=== PATIENT | female | born 1945 | race Caucasian/White ===

== ENCOUNTER 2023-01-17 05:13 | Observation (INO) ==
--- NOTE | 2022-12-18 10:54 | PAT Medication Instructions ---
Medication Instructions Date of Service December 18, 2022 Home Medications Bifidobacterium infantis 4 mg capsule (Align) 4 mg PO QDL cholecalciferol (vitamin D3) 50 mcg (2,000 unit) tablet (Vitamin D3) 50 mcg PO DAILY coQ10 (ubiquinol) 200 mg capsule 400 mg PO DAILY cyanocobalamin (vitamin B-12) 1,000 mcg tablet (Vitamin B-12) 1,000 mcg PO DAILY fluoxetine 20 mg capsule (Prozac) 20 mg PO QDL magnesium 250 mg tablet 250 mg PO 2XWK mesalamine 800 mg tablet,delayed release 1,600 mg PO BID pantoprazole 40 mg tablet,delayed release (Protonix) 40 mg PO BID valacyclovir 500 mg tablet (Valtrex) 500 mg PO QAM vitamin B complex 1 tab PO DAILY Continue as directed fluoxetine 20 mg capsule (Prozac) 20 mg PO QDL ASK your prescriber and surgeon mesalamine 800 mg tablet,delayed release 1,600 mg PO BID STOP taking 2 weeks before surgery coQ10 (ubiquinol) 200 mg capsule 400 mg PO DAILY DO NOT take the morning of surgery Bifidobacterium infantis 4 mg capsule (Align) 4 mg PO QDL cholecalciferol (vitamin D3) 50 mcg (2,000 unit) tablet (Vitamin D3) 50 mcg PO DAILY cyanocobalamin (vitamin B-12) 1,000 mcg tablet (Vitamin B-12) 1,000 mcg PO DAILY magnesium 250 mg tablet 250 mg PO 2XWK vitamin B complex 1 tab PO DAILY Take morning of surgery With a small sip of water, OTHERWISE NOTHING TO EAT OR DRINK AFTER MIDNIGHT: pantoprazole 40 mg tablet,delayed release (Protonix) 40 mg PO BID valacyclovir 500 mg tablet (Valtrex) 500 mg PO QAM Take evening before surgery pantoprazole 40 mg tablet,delayed release (Protonix) 40 mg PO BID Insulin Dependent Diabetic Patients * Test your blood sugar the morning of surgery * If Blood Sugar is GREATER THAN 150, take HALF of your regular dose of: * If Blood Sugar is LESS THAN 150, DO NOT TAKE ANY: Other Notes If you have any questions please call us at [phone] or [phone] or [phone] or [phone]
--- NOTE | 2022-12-25 13:44 | Anesthesiology Consultation ---
Date of Service December 25, 2022 Assessment & Plan (1) Encounter for pre-operative examination: Chart Review Chart Review: Acceptable Risk for Surgery (pending PCP clearance 12/31/22) and Patient seen in Pre Admission Testing -Awaiting PCP clearance 12/31/22 - Would not recommend patient as Outpatient Joint due to comorbities Per PAT appt on 12/25/22, patient denies any recent travel or large group activities. Pt is vaccinated for Covid. Will leave to surgeon's discretion if preop Covid testing needed. Educated on importance of using Covid precautions one week prior to surgery Cardiology Clearance letter 12/18/2022 = low cardiac risk for upcoming procedure. Patient last seen by cardiology 11/12/2022 = seen for EP evaluation. No new or worsening cardiac symptoms. History of paroxysmal atrial tachycardia, inflammatory bowel disease, CHAVEZ. Underwent baseline and stress echo June 2022. Showed preserved LVEF and no hemodynamically significant valvular or structural abnormalities. Stress test negative for ischemia. She is doing well from an EP perspective. EKG today is essentially normal. Baseline and stress echocardiogram were reviewed. Palpitations have been nonprogressive. BP at goal. Teaching & Discussion Pre-Anesthesia Teaching/Discussion Notes: Instructed NPO after midnight before surgery,except medications with 15 cc of water. Medication instructions provided according to the PAT guidelines. History Surgery Operation Date: 01/17/23 09:10 Proposed Procedures p Left Total Hip Arthroplasty - Matt Martinez MD Height/Weight Height: 5 ft 3 in Weight: 68.3 kg Allergies Allergy/AdvReac Type Severity Reaction Status Date / Time eggplant Allergy Severe mouth Verified 12/17/22 09:05 swelling shellfish derived Allergy Severe Anaphylaxis Verified 12/17/22 09:05 clarithromycin [From Biaxin] Allergy Intermediate hives and Verified 12/17/22 09:05 red all over levofloxacin [From Levaquin] Allergy Intermediate "pains in Verified 12/17/22 09:05 my calves" codeine Allergy Mild nausea/vomi Verified 12/17/22 09:05 ting Fish Containing Products Allergy Mild Rash Verified 12/17/22 09:05 Medications Home Medications Medication Instructions Recorded Confirmed Last Taken Bifidobacterium infantis 4 mg 4 mg PO QDL 12/17/22 12/17/22 Unknown capsule (Align) cholecalciferol (vitamin D3) 50 50 mcg PO DAILY 12/17/22 12/17/22 Unknown mcg (2,000 unit) tablet (Vitamin D3) coQ10 (ubiquinol) 200 mg capsule 400 mg PO DAILY 12/17/22 12/17/22 Unknown cyanocobalamin (vitamin B-12) 1,000 mcg PO DAILY 12/17/22 12/17/22 Unknown 1,000 mcg tablet (Vitamin B-12) fluoxetine 20 mg capsule (Prozac) 20 mg PO QDL 12/17/22 12/17/22 Unknown magnesium 250 mg tablet 250 mg PO 2XWK 12/17/22 12/17/22 Unknown mesalamine 800 mg tablet,delayed 1,600 mg PO BID 12/17/22 12/17/22 Unknown release pantoprazole 40 mg tablet,delayed 40 mg PO BID 12/17/22 12/17/22 Unknown release (Protonix) valacyclovir 500 mg tablet 500 mg PO QAM 12/17/22 12/17/22 Unknown (Valtrex) vitamin B complex 1 tab PO DAILY 12/17/22 12/17/22 Unknown Past Medical History Medical History Anxiety on prozac Atrial tachycardia - Paroxysmal, per pt has never gone above 110--follows Dr. 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- closed on own); later had rheumatic fever/scarlet fever at 5-6 years of age - followed with heart clinic during childhood - no murmur ntoed at 12/25/22 PAT appt PVC's (premature ventricular contractions) Raynauds disease Recurrent cold sores On prophylactic Valtrex Sleep apnea noncompliant with cpap Exercise / Class Metabolic Activity II 4-5 Yardwork/Stairs/Walk up hill (one flight stairs - no chest pain or SOB ) Past Family History Family History Other No family history of adverse response to anesthesia Past Surgical History Surgical History History of colonoscopy History of dilatation and curettage History of esophagogastroduodenoscopy (EGD) History of tonsillectomy History of wisdom tooth extraction Past Anesthesia History No Hx of Anesthesia Complications and No Family Hx of Anesthesia Complications History of PONV No Hx of PONV and No Hx of Motion Sickness Social History Smoking Status: Never smoker Do You Dip or Chew Tobacco: No Hx Alcohol Use: Yes alcohol intake frequency: holidays/special occasions only Hx Substance Use: No substance use type: does not use Review of Systems - Occ palpitations/skipped beat- stable x years- follows with cardio Patient denies chest pain, shortness of breath, dyspnea on exertion, cough, wheezing, palpitations. No hx of seizures, stroke, PA. No hx of blood clots or blood transfusions Physical Exam Vital Signs VITALS BP 163/85 P 72 TEMP 98.3 SP02 98% RESP 16 Constitutional no acute distress ENMT Mouth: no TMJ clicking Thyromental Distance: > or= 3.5 Finger Breadths (3.5) Mallampati Class: I Permanent bridge top right side Neck neck extension not limited Respiratory normal respiratory effort; no respiratory distress Auscultation: lungs clear to auscultation bilaterally; no wheezes Cardiovascular Rate/Rhythm: regular rate and regular rhythm Heart Sounds: no murmur Vessels: no carotid bruit Musculoskeletal Spine: no pain with cervical ROM Extremities: extremities normal to inspection Psychiatric Orientation: alert Lab Results Anesthesia Preop Results Results Anesthesia Widget: WBC 4.41 K/ul (4.8-10.8) L 12/25/22 Hgb 12.8 g/dl (12.0-16.0) 12/25/22 Hct 37.2 % (37.0-47.0) 12/25/22 Plt 224 K/uL (130-400) 12/25/22 Na 137 mmol/L (136-145) 12/25/22 K 4.4 mmol/L (3.5-5.1) 12/25/22 Cl 103 mmol/L (98-107) 12/25/22 CO2 30 mmol/L (21-32) 12/25/22 BUN 16 mg/dl (6-23) 12/25/22 Creat 0.62 mg/dl (0.6-1.2) 12/25/22 Glucose Level 80 mg/dl (70-99(Fasting)) 12/25/22 PT 10.4 Seconds (9.0-12.0) 12/25/22 PTT 26.7 Seconds (21.0-31.0) 12/25/22 INR 0.9 (0.9-1.1) 12/25/22 Urine Color Yellow 12/25/22 Urine Appearance Clear (Clear) 12/25/22 Urine pH 5.0 (4.5-7.5) 12/25/22 Urine Specific [place] 1.006 (1.000-1.030) 12/25/22 Urine Protein Negative (Negative) 12/25/22 Urine Glucose (UA) Negative (Negative) 12/25/22 Urine Ketones Negative (Negative) 12/25/22 Urine Blood Negative (Negative) 12/25/22 Urine Nitrite Negative (Negative) 12/25/22 Urine Bilirubin Negative (Negative) 12/25/22 Urine Urobilinogen Negative (Negative) 12/25/22 Urine Leukocyte Esterase Negative (Negative) 12/25/22 Blood Type O Positive 12/25/22 Antibody Screen NEGATIVE 12/25/22 Testing Electrocardiogram Date: 12/25/22 Findings: + NSR @ (60bpm ) Normal EKG per cardio Echocardiogram Date: 05/15/22 EF: 55-60% LV Function: normal Other Findings: no LVH or no diastolic dysfunction Valvular Disease: + MR (mild) Trace to mild TR Normal pulmonary pressures Stress Test Date: 06/12/22 Type: exercise (ECHO) Resting EF: 50-55% Stress EKG is negative for myocardial ischemia at 103% MPHR. Stress echo was negative for new wall motion abnormalities. 7.0 METS achieved. COVID-19 Risk Screen Screening Information COVID-19 Screen Date: 12/25/22 Exposure 21 Days Family/Household +COVID Last 21 Days: No Exposure 10 Days Any COVID Exposure Last 10 Days: No Symptoms Last 10 Days Experienced COVID Sx Last 10 Days: No + COVID 0-90 Days COVID + in Last 0-90 Days: No Risk Plan COVID Risk Plan: No Risk Identified Patient Education COVID Preop Screening Education Complete: Yes
--- NOTE | 2022-12-28 10:55 | History & Physical Report ---
Date of Service December 28, 2022 Assessment & Plan (1) Osteoarthritis of left hip: Plan: PRE-OP Diagnosis: Left hip osteoarthritis Planned Procedure: Left total hip arthroplasty Plan: Patient is scheduled to undergo this procedure at the [facility] with a 23-hour observation admission with Dr. Martinez on December. Risks and complications of the procedure such as: Infection, bleeding, pain, scarring, nerve blood vessel damage, weakness, wound problems, stiffness, incomplete relief of symptoms, hardware failure, hardware loosening, wear, fracture, tendon or ligament injury, dislocation, leg length inequality, blood clots, Embolism, heart attack, stroke and were explained to the patient at her visit today. Informed consent to perform the procedure was obtained. Patient also understands risks of proceeding with surgical intervention during the COVID-19 pandemic. Currently she is asymptomatic and has not been in contact with anyone positive for the virus recently. Patient has an appointment to meet with anesthesia later this afternoon and while there will obtain CBC with differential, complete metabolic panel, PT/INR, blood type and screen, urinalysis, urine culture and sensitivity, and a nasal culture for MRSA. Her EKG is up-to-date. 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 Rico. I spoke with her support group manager Dr. Suarez and advised him that we will prescribe the patient Celebrex due to her Crohn's disease and will have her on Xarelto for DVT prophylaxis. Patient states she is scheduled to see her primary care provider Dr. Emanuel on December 31 for her preoperative.. Patient states that she plans on doing in-home physical therapy for the first 1 to 2 weeks postoperatively. Patient states that she will most likely elect to do outpatient physical therapy at [facility] near her home. Patient will need a walker, raised toilet seat, shower chair and a hip kit. During today's visit we reviewed the total hip packet as well as precautions. We discussed discharge planning from the hospital. I provided paperwork to obtain a handicap placard for their vehicle. We discussed lectures offered by [facility] in regards to joint replacement surgery via Zoom. I advised the patient that upon discharge from hospital we will prescribe a narcotic pain medication and anti-inflammatory. Patient will also be on an Xarelto daily for blood clot prevention. Patient will be scheduled for 2-week postoperative follow-up visit with myself on January 25 at 1:30 PM. At that visit we will Provide the patient with an order for outpatient physical therapy and rehab protocol. Patient verbalizes understanding of all information provided during today's visit. She thanks for the care that she received. If she has questions or concerns that should arise prior to her surgery, she will contact clinic. This chart was completed utilizing [employer] voice recognition software. Grammatical errors, random word insertions, pronoun errors, and in complete sentences are an occasional consequence of the system. Any questions or concerns about the content, text, or information contained within the body of this dictation should be addressed directly to the physician for clarification. History of Present Illness Chief Complaint: Chief Complaint: Left hip pain Primary Care Provider: NO PCP History of Present Illness (including history relevant to procedure): This 77-year-old female presents to the clinic today for her preoperative history and physical. Patient states that she developed persistent left hip pain approximately 6 months ago. She feels the pain is affecting her gait and caused her to fall a few weeks ago. Patient localizes most of her pain to the posterior aspect of her hip but states that it does radiate into the groin with certain movements. Patient states the pain is affecting her ability to do housework, walk for long distances or to do any type of yard work. She states that at times she does have difficulty putting her pants on. She is electing to proceed with surgical intervention for her hip arthritis. Review Of Systems: A 12 point review of systems is performed and is unremarkable except for those things stated in the HPI and past medical history. Past Medical History: Problems: Arthritis of left hip Neuropathy History of heart murmur as a child Heart palpitations Sleep apnea Anxiety Rheumatoid arthritis Neck and lower back pain GERD Hiatal hernia Procedure History Procedure Procedure Date Comments Tonsillectomy/adenoidectomy Colonoscopy Endoscopy Allergies and Sensitivities: Biaxin(unknown) levoFLOXacin(Diarrhea) levoFLOXacin(Vomiting) eggplant(Mouth swelling) codeine(Rash, Hives) fish(Wheal) Current Home Meds: (Last Updated 12/25 11:01) FLUoxetine (PROzac 20 mg oral capsule) 20 mg PO Daily acetaminophen (Tylenol Arthritis Extended Release) cholecalciferol (Vitamin D3) PO cyanocobalamin (Vitamin B12) 1,000 mcg folic acid (folic acid 1 mg oral tablet) take 1 tablet by mouth once daily mesalamine (mesalamine 800 mg oral delayed release tablet) take 2 tablets by mouth twice a day multivitamin (Vitamin B Complex) pantoprazole (pantoprazole 40 mg oral delayed release tablet) take 1 tablet by mouth twice a day ubiquinone (CoQ10) unknown medication (probiotic) unknown medication (magnesium) 250mg twice a week valACYclovir (valACYclovir 500 mg oral tablet) take 1 tablet by mouth every 8 hours Allergies Allergy/AdvReac Type Severity Reaction Status Date / Time eggplant Allergy Severe mouth Verified 12/17/22 09:05 swelling shellfish derived Allergy Severe Anaphylaxis Verified 12/17/22 09:05 clarithromycin [From Biaxin] Allergy Intermediate hives and Verified 12/17/22 09:05 red all over levofloxacin [From Levaquin] Allergy Intermediate "pains in Verified 12/17/22 09:05 my calves" codeine Allergy Mild nausea/vomi Verified 12/17/22 09:05 ting Fish Containing Products Allergy Mild Rash Verified 12/17/22 09:05 Home Medications Medication Instructions Recorded Confirmed Type Bifidobacterium infantis 4 mg 4 mg PO QDL 12/17/22 12/17/22 History capsule (Align) cholecalciferol (vitamin D3) 50 50 mcg PO DAILY 12/17/22 12/17/22 History mcg (2,000 unit) tablet (Vitamin D3) coQ10 (ubiquinol) 200 mg capsule 400 mg PO DAILY 12/17/22 12/17/22 History cyanocobalamin (vitamin B-12) 1,000 mcg PO DAILY 12/17/22 12/17/22 History 1,000 mcg tablet (Vitamin B-12) fluoxetine 20 mg capsule (Prozac) 20 mg PO QDL 12/17/22 12/17/22 History magnesium 250 mg tablet 250 mg PO 2XWK 12/17/22 12/17/22 History mesalamine 800 mg tablet,delayed 1,600 mg PO BID 12/17/22 12/17/22 History release pantoprazole 40 mg tablet,delayed 40 mg PO BID 12/17/22 12/17/22 History release (Protonix) valacyclovir 500 mg tablet 500 mg PO QAM 12/17/22 12/17/22 History (Valtrex) vitamin B complex 1 tab PO DAILY 12/17/22 12/17/22 History Past Med/Surg History Medical History Anxiety on prozac Atrial tachycardia - Paroxysmal, per pt has never gone above 110--follows Dr. 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- closed on own); later had rheumatic fever/scarlet fever at 5-6 years of age - followed with heart clinic during childhood - no murmur ntoed at 12/25/22 PAT appt PVC's (premature ventricular contractions) Raynauds disease Recurrent cold sores On prophylactic Valtrex Sleep apnea noncompliant with cpap Surgical History History of colonoscopy History of dilatation and curettage History of esophagogastroduodenoscopy (EGD) History of tonsillectomy History of wisdom tooth extraction Family History Other No family history of adverse response to anesthesia Social History Smoking Status: Never smoker Second Hand Exposure: No; Do You Dip or Chew Tobacco: No; Hx Alcohol Use: Yes Hx Substance Use: No Preferred Language: Swedish Communication Ability: Effective Public Message Service Supervisor Required: No Beliefs That Will Affect Care: None Current Living Situation: Spouse Feels Safe at Home: Yes Assistive Devices: CPAP and Glasses Physical Exam Physical Exam: Physical Exam: (relevant to the procedure, including heart and lung evaluation) General: Alert and oriented x3 with proper grooming and hygiene Eyes: Pupils are equal and reactive to light with accommodation. Extraocular movements are intact Throat: Posterior oropharynx is clear with absence of edema, erythema or exudate Cardiac: Regular rate and rhythm with no murmurs or gallops appreciated Lungs: Clear to auscultation throughout with no wheezing, rales or rhonchi Abdomen: Mildly obese, nondistended, nontender with NABS Extremities: Left hip: Range of motion is limited to 90 degrees of flexion 5 degrees of internal rotation and 45 degrees of external rotation. Logroll test is positive with referred pain to the groin area. Stinchfield test is also positive with referred pain to the same location. Patient experiences tenderness to palpation over the groin and posterior lateral aspect of the hip. She has some weakness with applied resistance during a straight leg raise test. Otherwise she is neurovascularly intact in the left lower extremity. Neuro: Cranial nerves II through XII are intact with no motor or sensory deficit Skin: Normal in appearance with no open skin areas or discharge Results & Data Diagnostic Findings Studies (relevant to the procedure): 2 views of the left hip and ap pelvis show evidence of severe central pattern arthritis of left hip and moderate arthr itis of the right hip. Anterior joint wear on cross-table lateral film.
[2023-01-17] MEDS ORDERED: ceFAZolin 2000MG 2,000 MG/15 ML SYR IV SCH (06:00)
[2023-01-17] MEDS ORDERED: Scopolamine 1 MG TDSY TD SCH (06:00)
[2023-01-17] MEDS ORDERED: dexAMETHasone 4 MG TAB PO SCH (06:00)
[2023-01-17] MEDS ORDERED: ACETAMINOPHEN 500 MG TAB PO SCH (06:00)
[2023-01-17] MEDS ORDERED: ROPIVACAINE 0.5% HCL/PF 150 MG, BUPIVACAINE 0.75% MPF 20 ML, EPINEPHrine 0.15 MG, Ketor... INFIL SCH (06:00)
[2023-01-17] MEDS ORDERED: FAMOTIDINE 20 MG TAB PO SCH (06:00)
[2023-01-17] MEDS ORDERED: TRANEXAMIC ACID 1,000 MG **IV Intra-op IV SCH (06:00)
[2023-01-17] MEDS ORDERED: LR 500ML BOLUS, THEN 15ML/HR IV SCH (06:00)
[2023-01-17] MEDS ORDERED: traMADol HCL 50 MG TABLET PO SCH (06:00)
[2023-01-17] MEDS ORDERED: CeleBREX 200 MG CAP PO SCH (06:00)
[2023-01-17] MEDS ORDERED: LR 60ML/HR IV SCH (06:00)
[2023-01-17] MEDS ORDERED: TRANEXAMIC ACID 1,000 MG **IV Pre-op IV SCH (06:00)
[2023-01-17] MEDS ORDERED: LIDOCAINE 2% 2 ML VIAL/AMP(20MG/ML) INFIL ONE (06:33)
[2023-01-17] MEDS ORDERED: MIDAZOLAM HCL 1 MG/ML 2ML VIAL ONE (06:33)
[2023-01-17] MEDS ORDERED: PROPOFOL IV EMULSION 10 MG/ML 20 ML VIAL IV ONE (06:33)
[2023-01-17] MEDS ORDERED: fentaNYL citrate PF 100 MCG/2 ML VIAL ONE (06:33)
[2023-01-17] MEDS ORDERED: ORTHO JOINT ANESTHETIC ONE (06:34)
[2023-01-17] MEDS ORDERED: DEXAMETHASONE SOD INJ 4 MG/ML VIAL ONE (06:36)
[2023-01-17] MEDS ORDERED: ONDANSETRON INJ 2 MG/ML 2 ML VIAL ONE (06:36)
[2023-01-17] MEDS ORDERED: BUPIVACAINE 0.5 % 5 MG/1 ML PF 10ML VIAL ONE (06:36)
--- NOTE | 2023-01-17 06:42 | History & Physical Bridge Note ---
Date of Service January 17, 2023 History & Physical Bridge Note I have examined the patient, reviewed the History & Physical and in the interval since the performance of the History & Physical I have noted the following changes of clinical significance: no changes noted
[2023-01-17] MEDS ORDERED: ATROPINE SULFATE 0.1 MG/ML 10ML SYR IV PRN (06:49)
[2023-01-17] MEDS ORDERED: ePHEDrine sulfate 50 MG/ML AMP IV PRN (06:49)
[2023-01-17] MEDS ORDERED: HYDROmorphone INJ 2 MG/ML SYR/VIAL IV PRN (06:49)
[2023-01-17] MEDS ORDERED: ONDANSETRON INJ 2 MG/ML 2 ML VIAL IV PRN ×2 (06:49→08:52)
[2023-01-17] MEDS ORDERED: fentaNYL citrate PF 100 MCG/2 ML VIAL IV PRN (06:49)
[2023-01-17] MEDS ORDERED: ROCURONIUM BROMIDE 10 MG/ML 5 ML VIAL IV ONE (07:21)
[2023-01-17] MEDS ORDERED: ePHEDrine sulfate 50 MG/ML AMP ONE (07:31)
[2023-01-17] MEDS ORDERED: SUGAMMADEX SODIUM 200 MG/2 ML VIAL IV ONE (08:17)
--- NOTE | 2023-01-17 08:50 | Operative Report ---
Post Operative Report Pre & Post Diagnosis Operation Date: 01/17/23 07:00 Pre-Op Diagnosis: Left Hip Osteoarthritis Post-Op Diagnosis: Left Hip Osteoarthritis I identified the patient and participated in the time-out.: Yes Procedure Operation Date: 01/17/23 07:00 Actual Procedures p Left Total Hip Arthroplasty(Left) - Matt Martinez MD Surgeon Matt Martinez MD [employer]r FINN Mcdaniels PA-C and LUCY Davidson. No resident or fellow available Estimated Blood Loss 100 Findings Consistent with Post-Op Diagnosis Specimens Left femoral head Anesthesia Type Spinal MAC Complications none Disposition Disposition: Recovery Room Indications 78-year-old female with left hip osteoarthritis refractory to conservative management. X-rays demonstrate [id number] disease. She has medical history significant for neuropathy and rheumatoid arthritis. I had a long discussion with her about the risk and benefits of surgery, alternatives to surgery, and expected outcomes. After reviewing all these she elected to proceed with surge ry. All questions were answered. Informed consent was signed. Description of Procedure Patient was identified in the preoperative holding area where the surgical site, left hip, was marked. A spinal anesthetic was placed, then the patient was brought back to the main operating room, placed in the operating table and moved into the lateral decubitus position. Axillary roll was placed. All bony prominences were padded. Perioperative antibiotics and tranexamic acid 1 gram IV were administered. Operative extremity was prepped and draped in the normal sterile fashion. Prior to incision a multidisciplinary timeout was called. All in the room were in agreement. We began by making an incision for a posterior approach to the hip. We dissec jany down through subcutaneous tissues to the level of the fascia. The fascia was incised in line with the incision. Charnley bow was placed. The upper 1 cm gluteal sling was released 1 cm off the posterior aspect of the femur to improve visualization. Fatty tissue was reflected posteriorly off the back of the greater trochanter to expose the piriformis and short external rotators of the hip. The quadratus femoris, piriformis and short external rotators were dissected off the posterior aspect of the hip. A box cut was made in the capsule. Inferior hip capsule was released off the femur. The femoral head was dislocated. The femoral neck cut was made at our preoperative template. The acetabulum was then exposed. The labrum was sharply excised. Contents of the cotyloid fossa were removed with electrocautery. We then began reaming at a size 8 mm less than our preoperative template. We reamed up by [address] the way up to a size 50 mm cup. This gave us good bleeding cancellus bone circumferentially. The acetabulum was then irrigated out and dried. The real Center Gription cup was then impacted down into position with 45 degrees of lateral opening and 25 degre es of anteversion. A single cancellous bone screw was placed up into the ilium. Excellent fixation was obtained. A trial liner for a 32 mm femoral head was then placed. Next we turned our attention to the femur. The lateral neck was removed with a box osteotome. Intramedullary guide was used followed by the lateralizing reamer. We then reamed up to a size 4 [place] stem. We then broached all the way up to a size 4. We began trialing with a standard offset neck and a +1 head. Hip was reduced. Leg lengths were symmetric. The hip was stable in extension and external rotation, and stable in the sleeper position. At 90 degrees of hip flexion the hip could be internally rotated 60 degrees before levering out of the cup. I was very happy with the stability exam. Therefore the hip was dislocated and the femoral trial was removed. The acetabulum was re-exposed, and the trial liner was removed. An Altrx polyethylene liner for a 32 mm femoral head was then impacted into the shell. The locking mechanism was checked to ensure that it had engaged which it had. The femur was re-exposed. The femoral canal was irrigated and dried. The real size 4 standard offset [place] femoral stem was opened up. This was impacted down into position. It sat at the same level as the femoral trial. Therefore the 32 mm ceramic femoral head with +1 mm offset was opened up and gently impacted down onto the trunnion. The hip was atraumatically reduced. Another 1 gram of IV tranexamic acid was started prior to closure. The wound was irrigated out with sterile Betadine solution. The periarticular injection cocktail was then placed. The short external rotators, piriformis, and posterior capsule were repaired through drill holes in the greater trochanter using #2 Vicryl. The fascia was run with a looped #1 PDS. The subcutaneous layer was closed with #1 PDS. The dermal layer was closed with 2-0 Vicryl. Zip line was used for the skin followed by a Silverlon dressing. A compressive dressing was then placed. The patient was then rolled supine. Leg lengths were rechecked and were symmetric. An abduction pillow was placed. Sedation was lifted and the patient was transferred to the recovery room in stable condition. Summary of implants: Depuy Center Gription Acetabular Shell Sector Cup, 50 mm outer diameter Center Cancellous bone screw, 6.5 x 40 mm Center Altrx Polyethylene Acetabular Liner, Neutral, with a 32 mm inner diameter DePuy [place] Femoral stem with Porocoat, 12/14 taper, size 4 standard 32 mm ceramic femoral head with +1 offset Postoperative course: Patient will be admitted to the hospital from the recovery room. Patient will be weightbearing as tolerated with posterior hip precautions. Aspirin for DVT prophylaxis I attest to the content of the Intraoperative Record and any orders documented therein. Any exceptions are noted below.
[2023-01-17] MEDS ORDERED: bisacodyL 10 MG SUPP PR PRN (08:52)
[2023-01-17] MEDS ORDERED: HYDROmorphone INJ 0.5 MG/0.5 ML SYR IV PRN (08:52)
[2023-01-17] MEDS ORDERED: diphenhydrAMINE 50 MG/ML VIAL IV PRN (08:52)
[2023-01-17] MEDS ORDERED: NALOXONE HCL 0.4 MG/1 ML VIAL/CARP IV PRN (08:52)
[2023-01-17] MEDS ORDERED: MAGNESIUM HYDROXIDE SUSP 30 ML UDC PO PRN (08:52)
[2023-01-17] MEDS ORDERED: METOCLOPRAMIDE HCL INJ 5 MG/ML 2 ML VIAL IV PRN (08:52)
[2023-01-17] MEDS ORDERED: ALUMINUM/MAGNESIUM SUSP 30 ML UDC PO PRN (08:52)
--- NOTE | 2023-01-17 08:52 | Operative Report ---
Post Operative Report Pre & Post Diagnosis Operation Date: 01/17/23 07:00 Pre-Op Diagnosis: Left Hip Osteoarthritis Post-Op Diagnosis: Left Hip Osteoarthritis I identified the patient and participated in the time-out.: Yes Procedure Operation Date: 01/17/23 07:00 Actual Procedures p Left Total Hip Arthroplasty(Left) - Matt Martinez MD Surgeon Matt Martinez MD Sleever Bartolo [facility]; Austen Marshall MS-2 Estimated Blood Loss 100 Findings Consistent with Post-Op Diagnosis Specimens femoral head Description of Procedure I was present during the entire case assisting with positioning, prepping, draping, wound retraction, wound closure, dressing and abduction pillow placement. No fellow present. Please see Dr. Martinez procedure note for specifics of the case. I attest to the content of the Intraoperative Record and any orders documented therein. Any exceptions are noted below.
[2023-01-17] MEDS ORDERED: NON-FORMULARY MEDICATION (Coq10 (Ubiquinol) 200 mg Capsule) PO SCH (09:00)
[2023-01-17] MEDS ORDERED: NON-FORMULARY MEDICATION (Magnesium 250 mg Tablet) PO SCH (09:00)
--- NOTE | 2023-01-17 09:04 | Anesthesiology Progress Note ---
Date of Service January 17, 2023 Anesthesia Post Procedure Vital Signs Vital Signs: Temp Pulse Resp BP Pulse Ox O2 Del Method 01/17/23 05:50 36.8 C 77 18 181/74 H 100 Room Air Pain Intensity Left Hip: Pain Intensity: 9 Transfer of Care Handoff Completed per policy Notes Mental Status: alert / awake / arousable and participated in evaluation Patient Amnestic to Procedure: Yes Nausea / Vomiting: adequately controlled Pain: adequately controlled Airway Patency, RR, SpO2: stable & adequate BP & HR: stable & adequate Hydration State: stable & adequate Neuraxial Anesthesia: was administered and sensory block is resolving Anesthetic Complications: no major complications apparent and Pt Satisfied with anesthetic care
--- NOTE | 2023-01-17 10:59 | XRay Report ---
XR pelvis 1-2V routine CLINICAL HISTORY: Postoperative evaluation. COMPARISON: Pelvis radiograph December 25, 2022. FINDINGS: Alignment of the total left hip arthroplasty is anatomic. There is no periprosthetic fract ure. No unexpected radiopaque foreign bodies are present. There is an acetabular screw. IMPRESSION: Expected findings following left hip arthroplasty. ACT 112: Negative or not required by law. Electronically signed by: Satish Banerjee M.D. 01/17/2023 10:58 AM
[2023-01-17] MEDS: SODIUM CHLORIDE 0.9% 1000ML 1,000 ML IV SCH ×2 (11:05→22:05)
[2023-01-17] MEDS: DOCUSATE SODIUM 100 MG CAP PO SCH ×2 (11:14→21:30)
[2023-01-17] MEDS: CHOLECALCIFEROL 1,000 UNITS 25 MCG TAB PO SCH (11:14)
[2023-01-17] MEDS: CYANOCOBALAMIN (B-12) 500 MCG TABLET PO SCH (11:14)
[2023-01-17] MEDS: PANTOprazole 40 MG TAB PO SCH ×2 (11:14→19:21)
[2023-01-17] MEDS: MULTIVITAMIN TAB PO SCH (11:14)
[2023-01-17] MEDS: MESALAMINE 800 MG TABCR PO SCH ×2 (11:15→19:21)
[2023-01-17] MEDS: VITAMIN B COMPLEX TAB PO SCH (11:15)
[2023-01-17] MEDS: valACYclovir HCL 500 MG TABLET PO SCH (11:15)
[2023-01-17] MEDS: CeleBREX 200 MG CAP PO SCH ×2 (11:15→23:27)
[2023-01-17] MEDS ORDERED: FLUoxetine HCL 20 MG CAP PO SCH (11:30)
[2023-01-17] MEDS ORDERED: ADVANCED PROBIOTIC 1250 MG CAPSULE PO SCH (11:30)
[2023-01-17] MEDS: ceFAZolin 2000MG 2,000 MG/15 ML SYR IV SCH ×2 (14:21→23:25)
[2023-01-17] MEDS: ACETAMINOPHEN 500 MG TAB PO SCH ×2 (14:22→23:25)
[2023-01-17] MEDS ORDERED: TRANEXAMIC ACID / 0.7% NACL 1,000 MG/100 ML BAG IV SCH (15:00)
[2023-01-17] MEDS: oxyCODONE HCL IR 5 MG TAB (IMMEDIATE RELEASE) PO PRN ×2 (15:18→21:35)
[2023-01-17] MEDS: Scopolamine CHECK PATCH PLACEMENT SCH (16:14)
[2023-01-17] MEDS ORDERED: SENNA 8.6 MG TAB PO SCH (21:00)
[2023-01-18] MEDS: Scopolamine CHECK PATCH PLACEMENT SCH ×2 (01:50→07:50)
[2023-01-18 06:07] LABS: Basophils # (auto) 0.02 K/uL (0-0.2); Basophils % (auto) 0.3 %; Eosinophils # (auto) 0.01 K/uL (0-0.50); Eosinophils % (auto) 0.2 %; Hematocrit (blood only) 29.6 % (37.0-47.0); Hemoglobin 9.9 g/dl (12.0-16.0); Immature Granulocytes # (auto) 0.02 K/uL (0.01-0.20); Immature Granulocytes % (auto) 0.3 %; Lymphocytes # (auto) 1.42 K/uL (1.2-3.4); Lymphocytes % (auto) 24.8 %; Mean Corpuscular Hemoglobin 31.5 pg (25.0-34.0); Mean Corpuscular Hgb Conc 33.4 g/dL (32.0-36.0); Mean Corpuscular Volume 94.3 fL (80.0-100.0); Mean Platelet Volume 10.3 fL (9.4-12.4); Monocytes # (auto) 0.72 K/uL (0.11-0.59); Monocytes % (auto) 12.6 %; Neutrophils # (auto) 3.54 K/uL (1.40-6.50); Neutrophils % (auto) 61.8 %; Platelet Count 192 K/uL (130-400); RDW Coefficient of Variation 15.2 % (11.5-14.5); RDW Standard Deviation 52.6 fL (36.4-46.3); Red Blood Count 3.14 M/uL (4.20-5.40); White Blood Count 5.73 K/ul (4.8-10.8)
[2023-01-18] MEDS: oxyCODONE HCL IR 5 MG TAB (IMMEDIATE RELEASE) PO PRN (06:15)
[2023-01-18] MEDS: ACETAMINOPHEN 500 MG TAB PO SCH (06:15)
[2023-01-18 06:21] LABS: BUN Creatinine Ratio 22.1 (10-20); Est GFR (African American) 98.5 ml/min; Potassium 4.2 mmol/L (3.5-5.1)
[2023-01-18] MEDS: VITAMIN B COMPLEX TAB PO SCH (07:48)
[2023-01-18] MEDS: MESALAMINE 800 MG TABCR PO SCH (07:48)
[2023-01-18] MEDS: DOCUSATE SODIUM 100 MG CAP PO SCH (07:48)
[2023-01-18] MEDS: MULTIVITAMIN TAB PO SCH (07:48)
[2023-01-18] MEDS: CHOLECALCIFEROL 1,000 UNITS 25 MCG TAB PO SCH (07:49)
[2023-01-18] MEDS: valACYclovir HCL 500 MG TABLET PO SCH (07:49)
[2023-01-18] MEDS: CYANOCOBALAMIN (B-12) 500 MCG TABLET PO SCH (07:49)
[2023-01-18] MEDS: PANTOprazole 40 MG TAB PO SCH (07:49)
[2023-01-18] MEDS: CeleBREX 200 MG CAP PO SCH (07:50)
[2023-01-18] MEDS ORDERED: dexAMETHasone 4 MG TAB PO SCH (08:00)
[2023-01-18] MEDS ORDERED: RIVAROXABAN 10 MG TABLET PO SCH (09:00)
--- NOTE | 2023-01-18 09:46 | Orthopedic Progress Note ---
Date of Service January 18, 2023 Assessment & Plan (1) S/P total left hip arthroplasty: Plan: Total hip precautions reviewed Weightbearing as tolerated with walker assistance PT/OT Abduction pillow use x6 weeks DVT prophylaxis with Xarelto and SANGITA stockings Pain controlled p.o. medications Ice with easy wrap Keep Silverlon dressing in place until 2-week follow-up Plan is to discharge home today with in-home physical therapy Follow-up at [facility] orthopedics as previously scheduled With questions contact our clinic at [phone] Admission and Anticipated Discharge Date Admission Date: January 17, 2023 Subjective This 78-year-old female seen this morning. She is day 1 status post left total hip arthroplasty. She states she is doing very well. She states that her pain is well controlled with the oxycodone. She states that she was able to transition from her bed to the chair with walker assistance. She has made a couple trips to the bathroom with nursing assistance. Currently she is working with the occupational therapist. Patient denies chest pain, shortness of breath, fever, chills, sweats, lethargy, numbness or tingling in her left lower extremity. Review of Systems Review of Systems: All systems reviewed & are unremarkable except as noted in Subjective Physical Exam Physical Exam: Left hip: Outer dressing was removed. Silverlon is a little nonadherent proximally and distally. It was reinforced using Tegaderms. Patient is able to easily perform an active straight leg raise test. She is able to actively dorsi and plantarflex her foot without issue. She is able to transition from a seated to a standing position with assistance of her walker. Quad strength is 3+ out of 5. Silverlon is clean dry and intact. Patient experiences some slight tension with light passive internal hip rotation. She has no pain with flexion to 90 degrees or light passive external rotation. Logroll test causes no pain. Patient is neurovascularly intact in the left lower extremity. Results & Data Vital Signs (Past 12 Hours) Vital Signs Temp Pulse Pulse Resp BP Pulse Ox O2 Del Method 01/18/23 07:42 36.6 C 60 12 100/60 96 Room Air 01/18/23 06:17 36.8 C 69 18 107/58 L 96 Room Air 01/18/23 04:00 36.4 C L 64 16 106/56 L 97 Room Air 05/18/23 23:28 37.0 C 69 16 106/64 96 Room Air Diagnostic Findings Laboratory Results WBC 5.73 K/ul (4.8-10.8) 01/18/23 05:32 RBC 3.14 M/uL (4.20-5.40) L 01/18/23 05:32 Hgb 9.9 g/dl (12.0-16.0) L 01/18/23 05:32 Hct 29.6 % (37.0-47.0) L 01/18/23 05:32 MCV 94.3 fL (80.0-100.0) 01/18/23 05:32 MCH 31.5 pg (25.0-34.0) 01/18/23 05:32 MCHC 33.4 g/dL (32.0-36.0) 01/18/23 05:32 RDW Std Deviation 52.6 fL (36.4-46.3) H 01/18/23 05:32 RDW Coeff of Brianne 15.2 % (11.5-14.5) H 01/18/23 05:32 Plt Count 192 K/uL (130-400) 01/18/23 05:32 MPV 10.3 fL (9.4-12.4) 01/18/23 05:32 Immature Gran % (Auto) 0.3 % 01/18/23 05:32 Neut % (Auto) 61.8 % 01/18/23 05:32 Lymph % (Auto) 24.8 % 01/18/23 05:32 [place]cho % (Auto) 12.6 % 01/18/23 05:32 Eos % (Auto) 0.2 % 01/18/23 05:32 Baso % (Auto) 0.3 % 01/18/23 05:32 Neut # (Auto) 3.54 K/uL (1.40-6.50) 01/18/23 05:32 Lymph # (Auto) 1.42 K/uL (1.2-3.4) 01/18/23 05:32 [place]cho # (Auto) 0.72 K/uL (0.11-0.59) H 01/18/23 05:32 Eos # (Auto) 0.01 K/uL (0-0.50) 01/18/23 05:32 Baso # (Auto) 0.02 K/uL (0-0.2) 01/18/23 05:32 Immature Gran # (Auto) 0.02 K/uL (0.01-0.20) 01/18/23 05:32 Sodium 137 mmol/L (136-145) 01/18/23 05:32 Potassium 4.2 mmol/L (3.5-5.1) 01/18/23 05:32 Chloride 107 mmol/L (98-107) 01/18/23 05:32 Carbon Dioxide 27 mmol/L (21-32) 01/18/23 05:32 Anion Gap 3 (3-11) 01/18/23 05:32 BUN 15 mg/dl (6-23) 01/18/23 05:32 Creatinine 0.68 mg/dl (0.6-1.2) 01/18/23 05:32 Est Cr Clr Drug Dosing 65.0 ml/min 01/18/23 05:32 Est GFR ( Amer) 98.5 ml/min 01/18/23 05:32 Est GFR (Non-Af Amer) 85.0 ml/min 01/18/23 05:32 BUN/Creatinine Ratio 22.1 (10-20) H 01/18/23 05:32 Glucose 101 mg/dl (70-99(Fasting)) H 01/18/23 05:32 Calcium 9.0 mg/dl (8.6-10.3) 01/18/23 05:32 SARS-CoV-2, RNA, NAAT NEGATIVE (NEGATIVE) 01/17/23 05:25 Impressions Pelvis X-Ray 01/17/23 08:52 XR pelvis 1-2V routine CLINICAL HISTORY: Postoperative evaluation. COMPARISON: Pelvis radiograph December 25, 2022. FINDINGS: Alignment of the total left hip arthroplasty is anatomic. There is no periprosthetic fracture. No unexpected radiopaque foreign bodies are present. There is an acetabular screw. IMPRESSION: Expected findings following left hip arthroplasty. ACT 112: Negative or not required by law. Electronically signed by: Satish Banerjee M.D. 01/17/2023 10:58 AM
--- NOTE | 2023-01-18 09:54 | Discharge Summary ---
Date of Service January 18, 2023 Admission HPI Per Admitting Provider History of Present Illness (including history relevant to procedure): This 77-year-old female presents to the clinic today for her preoperative history and physical. Patient states that she developed persistent left hip pain approximately 6 months ago. She feels the pain is affecting her gait and caused her to fall a few weeks ago. Patient localizes most of her pain to the posterior aspect of her hip but states that it does radiate into the groin with certain movements. Patient states the pain is affecting her ability to do housework, walk for long distances or to do any type of yard work. She states that at times she does have difficulty putting her pants on. She is electing to proceed with surgical intervention for her hip arthritis. Review Of Systems: A 12 point review of systems is performed and is unremarkable except for those things stated in the HPI and past medical history. Past Medical History: Problems: Arthritis of left hip Neuropathy History of heart murmur as a child Heart palpitations Sleep apnea Anxiety Rheumatoid arthritis Neck and lower back pain GERD Hiatal hernia Procedure History Procedure Procedure Date Comments Tonsillectomy/adenoidectomy Colonoscopy Endoscopy Allergies and Sensitivities: Biaxin(unknown) levoFLOXacin(Diarrhea) levoFLOXacin(Vomiting) eggplant(Mouth swelling) codeine(Rash, Hives) fish(Wheal) Current Home Meds: (Last Updated 12/25 11:01) FLUoxetine (PROzac 20 mg oral capsule) 20 mg PO Daily acetaminophen (Tylenol Arthritis Extended Release) cholecalciferol (Vitamin D3) PO cyanocobalamin (Vitamin B12) 1,000 mcg folic acid (folic acid 1 mg oral tablet) take 1 tablet by mouth once daily mesalamine (mesalamine 800 mg oral delayed release tablet) take 2 tablets by mouth twice a day multivitamin (Vitamin B Complex) pantoprazole (pantoprazole 40 mg oral delayed release tablet) take 1 tablet by mouth twice a day ubiquinone (CoQ10) unknown medication (probiotic) unknown medication (magnesium) 250mg twice a week valACYclovir (valACYclovir 500 mg oral tablet) take 1 tablet by mouth every 8 hours Admission Exam Per Admitting Provider Physical Exam: (relevant to the procedure, including heart and lung evaluation) General: Alert and oriented x3 with proper grooming and hygiene Eyes: Pupils are equal and reactive to light with accommodation. Extraocular movements are intact Throat: Posterior oropharynx is clear with absence of edema, erythema or exudate Cardiac: Regular rate and rhythm with no murmurs or gallops appreciated Lungs: Clear to auscultation throughout with no wheezing, rales or rhonchi Abdomen: Mildly obese, nondistended, nontender with NABS Extremities: Left hip: Range of motion is limited to 90 degrees of flexion 5 degrees of internal rotation and 45 degrees of external rotation. Logroll test is positive with referred pain to the groin area. Stinchfield test is also positive with referred pain to the same location. Patient experiences tenderness to palpation over the groin and posterior lateral aspect of the hip. She has some weakness with applied resistance during a straight leg raise test. Otherwise she is neurovascularly intact in the left lower extremity. Neuro: Cranial nerves II through XII are intact with no motor or sensory deficit Skin: Normal in appearance with no open skin areas or discharge Principal Diagnosis Left hip osteoarthritis Discharge Exam Left hip: Outer dressing was removed. Silverlon is a little nonadherent proximally and distally. It was reinforced using Tegaderms. Patient is able to easily perform an active straight leg raise test. She is able to actively dorsi and plantarflex her foot without issue. She is able to transition from a seated to a standing position with assistance of her walker. Quad strength is 3+ out of 5. Silverlon is clean dry and intact. Patient experiences some slight tension with light passive internal hip rotation. She has no pain with flexion to 90 degrees or light passive external rotation. Logroll test causes no pain. Patient is neurovascularly intact in the left lower extremity. Discharge Data Allergies Allergy/AdvReac Type Severity Reaction Status Date / Time eggplant Allergy Severe mouth Verified 01/17/23 05:43 swelling shellfish derived Allergy Severe Anaphylaxis Verified 01/17/23 05:43 clarithromycin [From Biaxin] Allergy Intermediate hives and Verified 01/17/23 05:43 red all over levofloxacin [From Levaquin] Allergy Intermediate "pains in Verified 01/17/23 05:43 my calves" Fish Containing Products Allergy Mild Rash Verified 01/17/23 05:43 codeine AdvReac Mild nausea/vomi Verified 01/17/23 06:38 ting Procedures Performed Operation Date: 01/17/23 07:00 Actual Procedures p Left Total Hip Arthroplasty(Left) - Matt Martinez MD Ordered Studies 01/17/23 05:00 US - OR guided needle placemen Routine Hospital Course (1) S/P total left hip arthroplasty: Patient had an uneventful overnight stay following left total hip arthroplasty. She is very pleased with care that she received. Plan is to discharge home today with in-home physical therapy for the first 2 weeks postoperatively. Total hip precautions reviewed Weightbearing as tolerated with walker assistance PT/OT Abduction pillow use x6 weeks DVT prophylaxis with Xarelto and SANGITA stockings Pain controlled p.o. medications Ice with easy wrap Keep Silverlon dressing in place until 2-week follow-up Plan is to discharge home today with in-home physical therapy Follow-up at [facility] orth[facility] as previously scheduled With questions contact our clinic at [phone] Total Time Total Time Spent Total Time Spent (In Minutes): 25 minutes Discharge Plan Discharge Items Patient Disposition: Home - Home Health Services Reason For Visit: Left Hip Osteoarthritis Discharge Diagnosis: Left Hip Osteoarthritis Activity: As commented below Lifting: None Bathing: Keep incision dry Bathing Comment: May shower tomorrow Sexual Activity: Wait until after follow-up appointment Exercise/Sports: Wait until after follow-up appointment Driving/Machine Use: No driving until cleared by sales support specialist Weightbearing: Left weightbearing Weightbearing Comment: as tolerated with walker assistance Non-emergency contact: Surgeon Call non-emergency contact if: you have any medication questions, your pain is not controlled, your temperature is above 101.5, your wound has increased drainage and your wound pain has increased Follow-up/Referrals: PCP,NO [Physician] - Diet: Regular Addtl Attending Provider Instructions: Post-operative Instructions Dear Patient and Family/Friends, Before you are discharged from the hospital, it is important to know what to expect when you get home after surgery. To that end, we have created this sheet of discharge instructions which covers many commonly asked questions. Make sure you go through this sheet in its entirety with your nurse before you are discharged. Please note that we will go over the specifics of your surgery and recovery when you return for your first post-operative visit. Sincerely, Dr. Martinez Medications 1. Xarelto 10 mg: take 1 tab daily for 30 days post operatively for blood clot prevention. This will be sent to your pharmacy. 2. Celebrex 100 mg: take 1 tab twice daily for 30 days post operatively for pain and inflammation relief. This will be sent to your pharmacy. 3. Oxycodone 5 mg: take 1-2 tabs every 4-6 hours for pain relief. This will be sent to your pharmacy. 4. Zofran 4 mg: take 1 tab every 8 hours as needed for nausea/vomiting relief post operatively. This will be sent to your pharmacy. 5. Extra Strength Tylenol 500 mg: take 2 tabs every 6-8 hours as needed for additional pain relief. Please purchase. Pain Expect to be in a fair amount of pain after surgery. Remember, our goal is not to eliminate your pain, but to make it tolerable. It is a good idea to stay ahead of your pain by taking the medications you were prescribed once you get home. Typically, the pain starts improving 3-7 days after surgery. You should start weaning off the narcotic pain medication (oxycodone, hydrocodone, hydromo rphone, morphine) as soon as your pain improves. Please call our office if your pain is not adequately controlled. Ice Ice your operative site at least 5 times a day for 15-30 minutes at a time. Make sure you have a thin cloth between the ice or cooling unit and your skin to prevent wolf bite. This is especially important if you received a nerve block. Continue icing your operative site for the first 5-7 days after surgery, then as needed. Diet/Nausea/Vomiting Start by drinking clear liquids and eating crackers. If you can tolerate this, then you may resume your normal diet. If you feel nauseated or vomit, take Zofran/ondansetron (if prescribed). Please call our office if you have intractable nausea or vomiting, or, if after hours, you may go to the Emergency Room for help. Constipation Constipation is a common side effect of narcotic pain medication. If you have not had a bowel movement within 2 days after surgery, we recommend purchasing an over the counter laxative such as Milk of Magnesia, Dulcolax, or Miralax from a local pharmacy, and taking it as instructed. Call our clinic if any questions. Nerve block The anesthesia team sometimes places a nerve block to help with post-operative pain control. This results in significant numbness and inability to move the e xtremity. The nerve block usually wears off in 8-12 hours, but sometimes can last up to 24 hours. Please call our office if you are still unable to move your extremity after 24 hours, unless you received a pain pump to take home. Nerve blocks typically wear off quickly, so start taking pain medication as soon as you start feeling soreness near your surgical site. Weight bearing and Range of Motion. Do not bear any weight through your operative extremity immediately after surgery. If you had upper extremity surgery, do not lift anything with that arm. If you are in a knee brace, keep it locked in place until your follow-up. We will discuss your weight bearing, range of motion, and lifting restrictions in detail at your first post-operative appointment. Continuous Passive Motion (CPM) Machine If you were prescribed a CPM machine, it will start after your first post- operative appointment, at which time we will give you instructions on the range of motion settings and duration of treatment Physical therapy You will be given a prescription for physical therapy or occupational therapy at your first post-operative appointment. Typically, patients start therapy within 1 week of surgery Wound care and showering We will inspect your wound at your first post-operative visit, and may do a dressing change at that time. Most patients will be in a water-proof dressing that is removed 14 days after surgery. It is normal to see some dried blood on the dressing. Do not remove your dressing, paper strips or sutures yourself unless you are given permission. Showering is allowed the day after surgery. Do not scrub or remove any dressings. The wound should not be submerged underwater (i.e. in a bathtub or pool) until 4 weeks after surgery SANGITA stockings If you were given white stockings, these are to be worn at all times except to shower (on both legs) for the first 2 weeks after surgery. Driving You may not drive while taking narcotic pain medication or while in a cast, splint, sling or brace. You, the patient, need to make the final determination about when you are safe to drive, however, the earliest you may consider driving after surgery is below: Hand/Wrist/Elbow Surgery: 3 days Shoulder Surgery: 2 weeks Hip,/Knee/Ankle Surgery: 4 weeks Fracture repair: 6 weeks Return to Work Your return to work depends on what surgery was done and what type of work you do. Please bring any paperwork your employer needs completed to your first post-operative visit. Also, bring a description of your job duties, as this helps us to understand what risks you may face at work. Travel Avoid long distance travel (greater than 1 hour) in airplanes and cars for the first 6 weeks after surgery. If you must travel, you need to have a Doppler ultrasound done before you travel to rule out a blood clot in your legs. Follow-up You should have a follow-up appointment already scheduled 1-2 days after surgery . If not, please contact our office to make this appointment before you leave the hospital. When to call the office It is normal to have swelling and bruising in the limb that was operated on. This will improve with time. It is also normal to have fevers for the first 2 days after surgery. Reasons you should call your doctor include: Uncontrolled pain; Nausea, vomiting, or constipation that does not improve with medication; Fevers over 101.5, chills, sweats; Drainage or bleeding from the wound; Foul odor; Spreading areas of redness; Any other concerns Pending Studies at Discharge: No Stand-Alone Forms: [facility] Medications and DC Order Prescriptions: New acetaminophen [Tylenol Extra Strength] 500 mg Tablet 1,000 mg PO Q8 30 Days Qty: 180 0RF Xarelto 10 mg Tablet 10 mg PO DAILY 30 Days Qty: 30 0RF celecoxib [Celebrex] 200 mg Capsule 100 mg PO BID 14 Days Qty: 14 0RF oxycodone 5 mg Tablet 5 - 10 mg PO Q4H PRN (Reason: Postoperative pain control) Qty: 28 0RF ondansetron 4 mg tablet,disintegrating 4 mg PO Q8H PRN (Reason: nausea and vomiting) Qty: 14 0RF Continued fluoxetine [Prozac] 20 mg Capsule 20 mg PO QDL Align 4 mg Capsule 4 mg PO QDL mesalamine 800 mg Tablet,Delayed Release (Dr/Ec) 1,600 mg PO BID Rx Instructions: must be taken on empty stomach; no food 1 hr after or 2-3 hrs before dose valacyclovir [Valtrex] 500 mg Tablet 500 mg PO QAM pantoprazole [Protonix] 40 mg Tablet,Delayed Release (Dr/Ec) 40 mg PO BID cyanocobalamin (vitamin B-12) [Vitamin B-12] 1,000 mcg Tablet 1,000 mcg PO DAILY vitamin B complex Tablet 1 tab PO DAILY cholecalciferol (vitamin D3) [Vitamin D3] 50 mcg (2,000 unit) Tablet 50 mcg PO DAILY coQ10 (ubiquinol) 200 mg Capsule 400 mg PO DAILY magnesium 250 mg Tablet 250 mg PO [id number] Admission Data Admit Date/Time: 01/17/23 08:52 Attending Provider: Matt Martinez Admit Provider: Matt Martinez Primary Care Provider: Nils Emanuel Other Providers: [facility]
== END 2023-01-18 13:00 | disposition home health service (06) ==
LOC: ASU 05:13 → 3E 05:13